=== PATIENT | female | born 1970 | race Asian ===

== ENCOUNTER 2023-01-07 19:34 | Observation (INO) | payer OTHER ==
[~2023-01-07 19:34] MED LIST: Iopamidol-370 76% 500 ML MDV (1 ML CHARGE) ONE
[2023-01-07] MEDS ORDERED: Ondansetron PF 4 MG/2 ML Vial ONE (19:57)
[2023-01-07 20:16] LABS: #Monocytes 0.1 thou/uL (0.11-0.59); #Neutrophils 7.4 thou/uL (1.40-6.50); %Basophils 0.1 % (0.0-1.0); %Eosinophils 0.3 % (0.0-10.0); %Lymphocytes 3.3 % (21.0-51.0); %Monocytes 1.4 % (0.0-10.0); %Neutrophils 94.5 % (42.0-75.0); Hemoglobin 10.3 g/dL (12.0-16.0); Mean Corpuscular HGB CONC 33.9 g/dL (32.0-36.0); Mean Corpuscular Hemoglobin 28.5 pg (27.0-31.0); Mean Corpuscular Volume 84.2 fl (78.0-98.0); Mean Platelet Volume 10.2 fL (7.4-10.4); Platelet Count 172 10x3/uL (130-400); RBC Distribution Width 11.9 % (11.5-14.5); Red Blood Cell (RBC) Count 3.61 mill/uL (4.20-5.40); White Blood Cell (WBC) Count 7.8 10x3/uL (4.8-10.8)
[2023-01-07 20:44] LABS: ALT (SGPT) 36 U/L (8-55); AST (SGOT) 46 U/L (5-34); Albumin 3.5 g/dL (3.5-5.0); Alkaline Phosphatase 129 U/L (40-110); Anion Gap 12 mmol/L (10-20); BUN (Urea Nitrogen) 7 mg/dL (9.8-20.1); Bilirubin, Total 0.7 mg/dL (0.2-1.2); CK (CPK) 37 U/L (29-168); Calc. Creatinine Clearance 0 mL/min (70-130); Calcium 8.5 mg/dL (7.8-10.44); Carbon Dioxide 21 mmol/L (22-29); Chloride 105 mmol/L (98-107); Estimated GFR 104; Globulin 2.3 g/dL (2.4-3.5); Glucose 113 mg/dL (70-105); Lipase 13 U/L (8-78); Magnesium 1.2 mg/dL (1.6-2.6); Protein, Total 5.8 g/dL (6.0-8.3); Sodium 135 mmol/L (136-145)
[2023-01-07 20:50] LABS: Potassium 2.6 mmol/L (3.5-5.1)
[2023-01-07] MEDS ORDERED: Magnesium 2 GM/50 ML BAG (IN WATER) ONE (21:07)
[2023-01-07] MEDS ORDERED: Potassium Chloride 20 MEQ TAB ONE (21:07)
[2023-01-07 21:14] LABS: Acetaminophen Less than 10 mcg/mL (10.0-30.0); Alcohol Less than 10.0 mg/dL (Less than 10); Salicylate Less than 8.0 mg/dL (15.0-30.0)
[2023-01-07] MEDS ORDERED: Potassium Chloride 10 MEQ in Premix Bag 1 BAG IVPB SCH (21:15)
[2023-01-07] MEDS ORDERED: Promethazine HCl 12.5 MG in Sodium Chloride 0.9% 50 ML IVPB SCH (22:45)
[2023-01-08 00:21] LABS: Lactic Acid 0.8 mmol/L (0.5-2.2)
[2023-01-08] MEDS ORDERED: Electrolyte Replacement Protocol 1 EACH FS PRN (01:10)
[2023-01-08] MEDS ORDERED: Ondansetron PF 4 MG/2 ML Vial IVP PRN (01:11)
[2023-01-08] MEDS ORDERED: Calcium Carbonate 500 MG ChewTAB PO PRN (01:11)
[2023-01-08] MEDS ORDERED: Senokot S 8.6-50 MG TAB PO PRN (01:11)
[2023-01-08] MEDS ORDERED: Ondansetron ODT 4 MG TAB PO PRN (01:11)
[2023-01-08] MEDS ORDERED: Acetaminophen 325 MG TAB PO PRN (01:11)
[2023-01-08] MEDS ORDERED: D5 1/2 NS w/20 mEq KCL 1,000 ML IV SCH (01:15)
[2023-01-08 03:29] VITALS: BMI 19.6
[2023-01-08 05:19] LABS: #Monocytes 0.2 thou/uL (0.11-0.59); #Neutrophils 8.3 thou/uL (1.40-6.50); %Basophils 0.2 % (0.0-1.0); %Lymphocytes 3.1 % (21.0-51.0); %Monocytes 2.4 % (0.0-10.0); %Neutrophils 94.1 % (42.0-75.0); Hemoglobin 9.3 g/dL (12.0-16.0); Mean Corpuscular HGB CONC 32.4 g/dL (32.0-36.0); Mean Corpuscular Hemoglobin 27.7 pg (27.0-31.0); Mean Corpuscular Volume 85.4 fl (78.0-98.0); Mean Platelet Volume 9.7 fL (7.4-10.4); Platelet Count 156 10x3/uL (130-400); RBC Distribution Width 12.4 % (11.5-14.5); Red Blood Cell (RBC) Count 3.36 mill/uL (4.20-5.40); White Blood Cell (WBC) Count 8.8 10x3/uL (4.8-10.8)
[2023-01-08 06:03] LABS: Anion Gap 10 mmol/L (10-20); BUN (Urea Nitrogen) 5 mg/dL (9.8-20.1); Calc. Creatinine Clearance 80 mL/min (70-130); Calcium 7.9 mg/dL (7.8-10.44); Carbon Dioxide 23 mmol/L (22-29); Chloride 107 mmol/L (98-107); Estimated GFR 108; Glucose 101 mg/dL (70-105); Potassium 3.8 mmol/L (3.5-5.1); Sodium 136 mmol/L (136-145)
[2023-01-08] MEDS: Famotidine/PF 20 mg/2ml Vial SLOW IVP SCH ×2 (08:18→20:24)
[2023-01-08] MEDS ORDERED: Sodium Chloride 0.9% 500 ML IV SCH (09:00)
[2023-01-08] MEDS: Famotidine 20 MG TAB PO SCH ×2 (09:00→20:24)
[2023-01-08] MEDS: Sodium Chloride 0.9% 1,000 ML IV SCH ×2 (15:25→20:00)
[2023-01-09 08:03] LABS: Red Blood Cell (RBC) Count 3.17 mill/uL (4.20-5.40); White Blood Cell (WBC) Count 4.1 10x3/uL (4.8-10.8)
[2023-01-09 08:04] LABS: #Eosinphils 0.1 thou/uL (0.0-0.7); #Monocytes 0.4 thou/uL (0.11-0.59); #Neutrophils 2.5 thou/uL (1.40-6.50); %Basophils 0.2 % (0.0-1.0); %Lymphocytes 25.4 % (21.0-51.0); %Monocytes 10.1 % (0.0-10.0); %Neutrophils 62.1 % (42.0-75.0); Hemoglobin 8.8 g/dL (12.0-16.0); Mean Corpuscular HGB CONC 30.3 g/dL (32.0-36.0); Mean Corpuscular Hemoglobin 27.8 pg (27.0-31.0); Mean Corpuscular Volume 91.5 fl (78.0-98.0); Mean Platelet Volume 10.7 fL (7.4-10.4); Platelet Count 135 10x3/uL (130-400); RBC Distribution Width 12.5 % (11.5-14.5)
[2023-01-09] MEDS: Famotidine/PF 20 mg/2ml Vial SLOW IVP SCH (08:24)
[2023-01-09] MEDS: Famotidine 20 MG TAB PO SCH (08:25)
[2023-01-09] MEDS: Sodium Chloride 0.9% 1,000 ML IV SCH (08:25)
[2023-01-09 08:33] LABS: Anion Gap 8 mmol/L (10-20); BUN (Urea Nitrogen) 5 mg/dL (9.8-20.1); Calc. Creatinine Clearance 83 mL/min (70-130); Carbon Dioxide 24 mmol/L (22-29); Chloride 111 mmol/L (98-107); Estimated GFR 108; Glucose 85 mg/dL (70-105); Potassium 3.7 mmol/L (3.5-5.1); Sodium 139 mmol/L (136-145)
[2023-01-09 13:10] VITALS: BP 102/66; TEMP 97.5
== END 2023-01-09 14:02 | disposition home or self-care (01) ==
LOC: ERS 19:34 → SURG B 23:57
PROVIDERS: ADMIT Student in an Organized Health Care Education/Training Program; ATTEND Internal Medicine
DX: E86.0 Dehydration (principal); E87.6 Hypokalemia; E83.42 Hypomagnesemia; R19.7 Diarrhea, unspecified
CPT/HCPCS: 36415; 70450; 71275; 74177; 80048; 80053; 80307; 82550; 83605; 83690; 83735; 83880; 84484; 85025; 87040; 93005; 96361; 96365; 96367; 96375; G0378; J2405; J2550; J3475; J3480; J7030; J7050; Q9967; S0028